=== PATIENT | female | born 1970 | race Caucasian/White ===

== ENCOUNTER 2019-09-12 12:36 | Outpatient (CLI) | payer OTHER, SELFPAY ==
--- NOTE | 2019-09-12 13:36 | DI.US_ITS ---
EXAM: US LOWER EXTREMITY VENOUS LT US LOWER EXTREMITY VENOUS LT CLINICAL HISTORY: LT CALF PAIN M79.662. LT CALF PAIN M79.662 TECHNIQUE: Ultrasound performed using standard protocol. COMPARISON: No exams were available for comparison FINDINGS: Duplex venous ultrasound was performed according to the usual protocol. The deep veins are freely com pressible throughout and there is normal flow augmentation with manual calf compression. 2D and Doppl er evaluation are unremarkable. IMPRESSION: No evidence of deep venous thrombosis of the lower extremity
== END 2019-09-12 12:56 ==
PROVIDERS: PCP Family Medicine; Visit Provider Family Medicine
DX: M79.662 Pain in left lower leg (principal)
CPT/HCPCS: 93971

== ENCOUNTER 2020-10-22 15:01 | Outpatient (REF) | payer OTHER, SELFPAY ==
--- NOTE | 2020-10-22 10:15 | PAPFT_PTH ---
PATIENT: Radha Veronica LOC: [facility]#:[id number] AGE/SX: 50/F ROOM: RE10/22/[address]: Tila Way : 1970 BED: DIS: 10/22/2020 SPEC #: [id number] RECD: 10/22/20 18:33 STATUS: FARHAD REQ #: [id number] LUANA: 10/22/20 10:[address]: Tila Way [facility]PT[facility] Cytology RECD BY: Dia West Tissues: 1 - CX/ENDOCX FOR PAP SMEARS Procedures: PAP THIN PREP/UVM Screening HPV DNA PROBE Comments: [id number]
[2020-10-22 17:06] LABS: HCT 36.8 % (36.0-46.0); HGB 10.6 g/dL (11.2-15.7); MCH 22.1 pg (27.0-33.0); MCHC 28.8 % (32.0-36.0); MCV 76.7 fL (80-95); MPV 10.6 fL (8.0-11.0); Platelet Count 414 10^3/uL (130-400); RDW 17.8 % (11.7-14.6); RDW-SD 49.4 fL; WBC 7.07 10^3/uL (4.4-10.8)
[2020-10-22 17:26] LABS: Ferritin 6 ng/mL (8-252); TSH (W/Ref FT4) 0.62 uIU/mL (0.36-3.74)
[2020-11-01 13:36] LABS: IgA 203 mg/dL (85-499); Interpretation (See Note); Tissue Transglutaminase IgA <1.2 U/mL (<4.0)
== END 2020-10-22 15:02 | disposition home or self-care (01) ==
LOC: NCHCN 15:01
PROVIDERS: PCP Family Medicine; Visit Provider Family Medicine
DX: Z00.00 Encounter for general adult medical examination without abnormal findings (principal); N92.1 Excessive and frequent menstruation with irregular cycle; Z12.4 Encounter for screening for malignant neoplasm of cervix; Z11.51 Encounter for screening for human papillomavirus (HPV); D50.9 Iron deficiency anemia, unspecified; K59.09 Other constipation
CPT/HCPCS: 82784; 83516; 85027; 88142; 82728; 84443; 87624

== ENCOUNTER 2020-12-14 02:41 | Outpatient (CLI) | payer OTHER, SELFPAY ==
[2020-12-14 09:26] LABS: Abs Immature Grans 0.03 10^3/uL (0.0-0.06); Absolute Basophil Count 0.08 10^3/uL (0.0-0.2); Absolute Eosinophil Count 0.26 10^3/uL (0.0-0.7); Absolute Lymphocyte Count 1.58 10^3/uL (1.2-3.4); Absolute Monocyte Count 0.59 10^3/uL (0.1-0.8); Absolute Neutrophil Count 4.81 10^3/uL (1.2-6.7); Basophils % 1.1; Eosinophils % 3.5; HCT 43.9 % (36.0-46.0); HGB 14.1 g/dL (11.2-15.7); Immature Grans % 0.4; Lymphocytes % 21.5; MCH 28.3 pg (27.0-33.0); MCHC 32.1 % (32.0-36.0); MCV 88.2 fL (80-95); MPV 9.7 fL (8.0-11.0); Neutrophils % 65.5; Nucleated RBC 0 %; Platelet Count 341 10^3/uL (130-400); RBC 4.98 10^6/uL (3.93-5.22); WBC 7.35 10^3/uL (4.4-10.8)
[2020-12-14 10:12] LABS: Diff Comment Diff Reviewed
[2020-12-14 10:13] LABS: Hypochromasia 1+
[2020-12-14 10:25] LABS: Source Nasal/Nares
[2020-12-14 21:17] LABS: COVID-19 PCR Negative (Negative)
== END 2020-12-14 02:42 | disposition home or self-care (01) ==
LOC: LBO 02:41
PROVIDERS: PCP Family Medicine; Visit Provider Obstetrics & Gynecology
DX: N93.8 Other specified abnormal uterine and vaginal bleeding (principal); Z20.822 Contact with and (suspected) exposure to COVID-19; Z01.818 Encounter for other preprocedural examination; Z01.812 Encounter for preprocedural laboratory examination
CPT/HCPCS: 36415; 86850; 86900; 86901; 87635; 85025

== ENCOUNTER 2020-12-16 11:30 | Day surgery (SDC) | payer OTHER, SELFPAY ==
[2020-12-16] VITALS (9 sets, daily range): BP systolic 128–160; BP diastolic 52–88; PULSE 57–75; RESP 11–18; TEMP 36.2–36.5; O2SAT 96–100; BMI 26.0
[2020-12-16] MEDS: Lactated Ringers 1,000 ML 125 ML IV (12:11)
--- NOTE | 2020-12-16 12:18 | W.ANESPRE ---
General Info Date of Service Date Performed: 12/16/20 Height: 5 ft 1 in Weight: 62.6 kg Body Mass Index (BMI): 26.0 Surgical Procedure: Operation Date: 12/16/20 13:10 Proposed Procedures Side Surgeon p Dilation & Curettage with Hysteroscopy Di Martínez DO Meds Allergies and Home Medications Allergies Allergy/AdvReac Type Severity Reaction Status Date / Time Sulfa (Sulfonamide Allergy Mild Hives Unverified 12/13/20 14:46 Antibiotics) amoxicillin Allergy Hives Unverified 12/13/20 14:46 Penicillins Allergy Hives Unverified 12/31/15 17:17 Home Medication Medication Instructions Recorded Advair HFA 2 puff INHALATION BID puff 02/20/13 albuterol sulfate [Ventolin HFA] 2 puff INHALATION Q6H PRN puff 02/20/13 citalopram 10 mg PO DAILY 12/31/15 polyethylene glycol 3350 17 17 g PO DAILY 11/03/20 gram/dose oral powder ferrous fumarate 325 mg (106 mg 325 mg PO DAILY 11/30/20 iron) tablet norethindrone acetate 5 mg tablet 5 mg PO .Twice daily #60 tab 11/30/20 Current Visit Medications: Current Medications Generic Name Dose Route Start Last Admin Trade Name Freq PRN Reason Stop Dose Admin Ringer's Solution 1,000 mls @ 125 mls/hr 12/16/20 06:00 12/16/20 12:11 IV 01/14/21 23:59 125 mls/hr INFUSION NEDA Administration IV Miscellaneous Supplies 1 each 12/16/20 06:00 Iv Access IV 01/14/21 23:59 DIRECTED NEDA Sodium Chloride 0 ml 12/16/20 06:00 Normal Saline Flush 10 Ml Syr IV 01/14/21 23:59 PRN PRN Sodium Chloride 0 ml 12/16/20 06:00 Normal Saline 10 Ml Vial IJ 01/14/21 23:59 DIRECTED PRN Sterile Water 0 ml 12/16/20 06:00 Water,Injection,Sterile 10 Ml Vial IJ 01/14/21 23:59 DIRECTED PRN PFSH Active Problems Active Problems: Problem Status Onset Code Thickened endometrium R93.89 Iron deficiency anemia D50.9 Dysfunctional uterine bleeding N93.8 Medical History Medical History Adenomatous colon polyp Alcohol use Asthma Constipation Dysfunctional uterine bleeding Dysplasia of cervix Eczema Generalized anxiety disorder Iron deficiency anemia Irritable colon Metrorrhagia Thickened endometrium Tobacco use Surgical History Surgical History Idiopathic scoliosis Tobacco Smoking/Tobacco Use Status: Current every day Tobacco Type: cigarettes Alcohol Alcohol Intake: current Alcohol intake frequency: a few times a week Alcohol type: hard liquor Substance Use Substance use: Never Substance use type: does not use Vital Signs and Lab Results Vital Signs Most Recent Vital Signs in EMR: Most Recent Vital Signs Temp Pulse Resp BP Pulse Ox 36.5 C 70 16 134/88 96 12/16/20 11:49 12/16/20 11:49 12/16/20 11:49 12/16/20 11:49 12/16/20 11:49 Point of Care Results Point of Care Results: POC- Test(urine) Negative 12/16/20 12:09 Lab Results Blood Type / Crossmatch: Patient ABO/Rh A Positive 12/14/20 09:00 12/14/20 Antibody Screen Negative 12/14/20 09:00 12/14/20 Complete Blood Count: White Blood Count 7.35 10^3/uL (4.4-10.8) 12/14/20 09:00 12/14/20 Red Blood Count 4.98 10^6/uL (3.93-5.22) 12/14/20 09:00 12/14/20 Hemoglobin 14.1 g/dL (11.2-15.7) 12/14/20 09:00 12/14/20 Hematocrit 43.9 % (36.0-46.0) 12/14/20 09:00 12/14/20 Platelet Count 341 10^3/uL (130-400) 12/14/20 09:00 12/14/20 Complete Metabolic Panel: No Data to Display Liver Function Panel: No Data to Display Coagulation Panel: No Data to Display Cardiac Panel: No Data to Display Arterial Blood Gas: No Data to Display Venous Blood Gas: No Data to Display Pancreas Panel: No Data to Display Thyroid Panel: No Data to Display Infectious Disease: Coronavirus (COVID-19)(PCR) Negative (Negative) 12/14/20 10:23 12/14/20 Coronavirus 2019 Source Nasal/nares 12/14/20 10:23 12/14/20 Blood Cultures: No Data to Display Toxicology Panel: No Data to Display Panel: No Data to Display Anesthesia Assessment and Plan Anesthesia History Personal History: No History of Anesthesia Complications Family History: No Family History of Anesthesia Complications Exercise Tolerance Exercise Tolerance: Metabolic Equivalents>4 Pertinent Negatives Pertinent Negatives: No Symptoms of GERD, No Major Cardiovascular Symptoms or Complaints, No Major Pulmonary Symptoms or Complaints (Asthma well controlled +smoker half pack ), No History of CVA/TIA and Other (ETOH 3-4/week ) Cardiac & Pulmonary Exam Cardiac Exam: Normal S1/S2 Heart Sounds Pulmonary Exam: Clear Bilateral Breath Sounds Airway Exam Known Difficult Airway: No Mallampati Class: 3 Mouth Opening: Narrow (< 3cm) Thyromental Distance: Less than 3 cm Neck Range of Motion: Full ROM Neck Circumference: Normal Teeth Condition: Normal Dentition ASA Classification ASA Score: ASA 2 Emergency Case?: No NPO Status NPO Status: NPO Clears >2 hours, Solids >8 hours Status Status: Negative HCG Anesthesia Plan Anesthesia Technique: General Anesthesia Airway Planned: Natural Airway Monitors Used: Standard Monitors
--- NOTE | 2020-12-16 13:30 | ENDO_PTH ---
PATIENT: Radha Veronica LOC: [facility] U#:[id number] AGE/SX: 50/F ROOM: RE12/16/[address]: Di Martínez DO : 1970 BED: DIS: 12/16/2020 SPEC #: [id number] RECD: 12/16/20 17:08 STATUS: FARHAD RE #: [id number] LUANA: 12/16/20 13:[address]: Di Martínez DEPT: Surgical Specimen RECD BY: Dia West ENTERED: 12/16/20 17:08 SP TYPE: Endo OTHR DR: Tila Way Tissues: 1 - ENDOCERVICAL BX/CURRETTE 2 - ENDOMETRIUM BX/CURRETTE Procedures: GROSS AND MICRO LEVEL 4 Comments: [id number]
--- NOTE | 2020-12-16 13:44 | ROE_ITS ---
Date of service: 12/16/20 Time of Service: 13:44 Operative Note Operative Note DATE OF PROCEDURE: 12/16/20 PRE-OP DIAGNOSIS: Dysfunctional uterine bleeding POST-OP DIAGNOSIS: same PROCEDURE: Hysteroscopy with dilation curettage SURGEON: Di Martínez ANESTHESIA TYPE: General LMA/ETT Refer to Anesthesia Record ESTIMATED BLOOD LOSS: 10 PATHOLOGY: other (1. Endocervix 2. Endometrium) COMPLICATIONS: None Patient was transported to: PACU Patient's condition: stable Indications: Ongoing heavy menstrual bleeding Findings: Bulky uterus, approximately 10 weeks size, freely mobile, appropriate descent. Thickened endometrium with plush lining. No discrete fibroid or polyp noted Procedure Description: Patient was taken the operating suite with an IV running where she placed in dorsal supine position. Anesthesia administered via monitored anesthesia care and converted to General via LMA. Patient was prepped and draped in the usual sterile fashion after timeout was performed. Exam under anesthesia revealed a uterus that was midline mobile, bulky approximately 10 weeks size with good descent. Speculum placed into the vaginal vault and a single tenaculum used to grasp the anterior cervix. Cervical os dilated the point that a 5 mm hysteroscope could be passed with ease. With instillation of normal saline the entire endometrial cavity was inspected. Both to be tubal ostia's were visualized. The endometrium overall appeared plush, thickened, somewhat irregular at the left cornual region. There is no evidence of polyp or fibroid. At this point hysteroscope was removed and a gentle sharp curettage performed of the endocervix followed by the endometrium. At this point tenaculum was removed tenaculum site was hemostatic. Speculum was removed and patient awoke from anesthesia with ease. She is taken recovery room in stable condition Findings: Bulky, 10-week size uterus with good descent. [place] endometrium Complications: None apparent Fluids: Crystalloid per anesthesia, less than 200 cc normal saline installation for hysteroscope. Pathology: 1. Endocervix 2. Endometrium
--- NOTE | 2020-12-16 14:52 | W.ANESPOSTOP ---
Postoperative Evaluation Date, Time and Location Date Performed: 12/16/20 Time Performed: 14:54 Patient Location: Day Surgery Unit Vital Signs Most Recent Imported Vital Signs: Most Recent Vital Signs Temp Pulse Resp BP Pulse Ox 36.5 C 68 17 132/55 L 98 12/16/20 14:35 12/16/20 14:35 12/16/20 14:35 12/16/20 14:35 12/16/20 14:35 Pain Score Most Recent Pain Score: Most Recent Pain Score Pain Level 0 12/16/20 14:35 Assessment Mental Status: Awake (Alert & Oriented to Patient Baseline) Airway and Respiratory Function: Patent airway with normal (patient baseline) respiratory exam Cardiovascular Function: Hemodynamically Stable Hydration Status: Adequately Hydrated Nausea & Vomiting: No Nausea or Vomiting Pain: Pain is tolerable/mild (<5/10) Peripheral Nerve Block: Patient did not receive a nerve block Postoperative Comments:: Slight cramping only.
== END 2020-12-16 15:30 | disposition home or self-care (01) ==
PROVIDERS: PCP Family Medicine; Visit Provider Obstetrics & Gynecology
PROC: 0UDB8ZZ Extraction of Endometrium, Via Natural or Artificial Opening Endoscopic (ICD-10-PCS; CPT 58558; principal; 2020-12-16 13:00)
DX: N93.8 Other specified abnormal uterine and vaginal bleeding (principal); R93.89 Abnormal findings on diagnostic imaging of other specified body structures; D50.9 Iron deficiency anemia, unspecified
CPT/HCPCS: 58558; 81025; 88305; J1885; J2001; J2405; J2704

== ENCOUNTER 2021-02-09 11:42 | Outpatient (REF) | payer OTHER, SELFPAY ==
[2021-02-09 14:50] LABS: HCT 46.9 % (36.0-46.0); HGB 15.6 g/dL (11.2-15.7); MCH 32.1 pg (27.0-33.0); MCHC 33.3 % (32.0-36.0); MCV 96.5 fL (80-95); MPV 10.8 fL (8.0-11.0); Platelet Count 302 10^3/uL (130-400); RBC 4.86 10^6/uL (3.93-5.22); RDW 13.2 % (11.7-14.6); RDW-SD 46.7 fL
[2021-02-09 15:29] LABS: COMMENT (LAB VIEW ONLY) 13.64 mg/dL
[2021-02-09 15:40] LABS: Anion Gap 12.2 mmol/L (3-11); BUN 7 mg/dL (7-18); CO2 23.8 mmol/L (21.0-32.0); CREATININE 0.6 mg/dL (0.55-1.02); Calcium 9.1 mg/dL (8.5-10.1); Chloride 105 mmol/L (98-107); Ferritin 36 ng/mL (8-252); Glucose 91 mg/dL (74-106); Potassium 4.3 mmol/L (3.5-5.1); Sodium 141 mmol/L (136-145)
== END 2021-02-09 11:43 | disposition home or self-care (01) ==
LOC: NCHCN 11:42
PROVIDERS: PCP Family Medicine; Visit Provider Family Medicine
DX: D50.9 Iron deficiency anemia, unspecified (principal); I10 Essential (primary) hypertension
CPT/HCPCS: 80048; 85027; 82043; 82570; 82728

== ENCOUNTER 2021-02-14 13:10 | Outpatient (RCR) | payer OTHER, SELFPAY ==
--- NOTE | 2021-02-14 16:00 | HOLTER_ITS ---
APPROVED REPORT Conclusion There is a 24-hour monitor ordered for indication of palpitations. Patient was in normal sinus rhythm for the majority the recording with an average heart rate of 84 bp m. There were no episodes of ventricular tachycardia and rare PVCs. There were no episodes of supraventricular tachycardia and rare PACs. There were no episodes of atrial fibrillation, no pauses greater than 3 seconds and no evidence of hi gh degree heart block. There were 9 patient reported events associated with racing heart and flutter. None of these wer e associated with significant arrhythmia nor any significant ectopy.
== END 2021-03-05 23:59 | disposition home or self-care (01) ==
LOC: RT 13:10
PROVIDERS: PCP Family Medicine; Visit Provider Family Medicine
DX: R00.2 Palpitations (principal)
CPT/HCPCS: 93225; 93226

== ENCOUNTER 2021-08-04 02:25 | Outpatient (CLI) | payer OTHER, SELFPAY ==
--- NOTE | 2021-08-04 16:05 | DI.MAMMO_ITS ---
Exam(s) MAMMO SCREENING EXAM: MAMMO SCREENING CLINICAL HISTORY: SCREENING, Z12.31. TECHNIQUE: Bilateral full field digital CC and MLO mammographic images were obtained with 3D tomosyn thesis and utilizing computer aided detection (CAD). COMPARISON: Prior baseline mammogram of 2014 FINDINGS: There has been no significant change in the appearance and distribution of the fibroglandular tissue which is moderately dense, this somewhat decreasing the sensitivity mammogram for finding in underlyi ng lesions. There are no new spiculated masses nor malignant appearing microcalcification groups. There is no significant architectural distortion nor skin thickening-retraction. IMPRESSION: Moderately dense fibroglandular tissue. No obvious radiographic evidence of malignancy nor significa nt change compared to the baseline mammogram of 2015. BI-RADS Category 1 - Negative Breast Density - Category C - Heterogeneously dense Breast density Category C or D implies that the patient has dense breast tissue. Dense breast tissue can make it harder to find cancer on a mammogram. Dense breast tissue is also associated with an incr eased risk of breast cancer. This information about the result of the mammogram report was provided to the patient to raise their awareness. Use this report when you speak with the patient about their risks for breast cancer, which includes their family history. At that time, you may recommend additional screening tests (Ultrasoun d or MRI) as these tests may add significant information. A negative radiographic report should not delay biopsy if a dominant or clinically suspicious mass is present. Up to ten percent of cancers are not identified on mammography. A negative report may reinforce clinical impression. Adenosis and dense breasts may obscure an underlying neoplasm. False positive reports average 6 to 10%. Patient will receive a letter notifying them of these results.
== END 2021-08-04 02:45 ==
PROVIDERS: PCP Family Medicine; Visit Provider Family Medicine
DX: Z12.31 Encounter for screening mammogram for malignant neoplasm of breast (principal); N64.89 Other specified disorders of breast
CPT/HCPCS: 77063; 77067

== ENCOUNTER 2021-11-02 14:44 | Outpatient (REF) | payer OTHER, SELFPAY ==
[2021-11-02 16:54] LABS: HCT 44.7 % (36.0-46.0); HGB 14.8 g/dL (11.2-15.7); MCH 31.8 pg (27.0-33.0); MCHC 33.1 % (32.0-36.0); MCV 96.1 fL (80-95); MPV 11.9 fL (8.0-11.0); Platelet Count 308 10^3/uL (130-400); RBC 4.65 10^6/uL (3.93-5.22); RDW 12.6 % (11.7-14.6); RDW-SD 44.7 fL; WBC 7.14 10^3/uL (4.4-10.8)
[2021-11-03 14:52] LABS: Ferritin 37 ng/mL (8-252)
== END 2021-11-02 14:45 | disposition home or self-care (01) ==
LOC: NCHCN 14:44
PROVIDERS: PCP Family Medicine; Visit Provider Family Medicine
DX: D50.9 Iron deficiency anemia, unspecified (principal)
CPT/HCPCS: 85027; 82728

== ENCOUNTER 2022-05-05 09:12 | Day surgery (SDC) | payer OTHER, SELFPAY ==
--- NOTE | 2022-05-04 22:33 | COLE_ITS ---
Colonoscopy Report Date of procedure: 05/05/22 Pre-op diagnosis general: villous adeonma Post-op diagnosis procedure note: other (normal) Surgeon: Sydni Pope Anesthesia Type: General:No Airway Estimated blood loss (mL): 0 Pathology: none sent Complications: None Disposition: same day Prep: Miralax/Dulcolax Retraction Time: 7 Procedure Description: After informed consent was obtained the patient was taken to the procedure room and placed in a left decubitous position. Monitors were applied and a time out was done. The patients name, date of , procedure, allergies to medications and metal in their body was reviewed. The patient was then sedated. Once sedat ed and comfortable a rectal exam was done. External exam was normal. Internal exam revealed a normal sphincter tone and no palpable masses. The scope was then introduced and retrofelexed. No internal hemorrhoids were identified. The scope was then advanced to the cecum w/out difficulty. The TI and appendiceal orifice were identified. The prep was BBPS 3 in all segments for a total of 9. The scope was then slowly retracted over 7 minutes back into the rectum. There are no polyps, AVM's, or diverticula visulaized. The mucosa is pink adn healthy w/ a normal vascular pattern. The scope was removed and the patient was woken up and taken back to Same day surgery in stable condition. The patient tolerated the procedure well and there were no immediate complications. Follow up: The patient should follow up in 10 years unless they develop changes in bowel habits or other new gastrointestinal complaints.
--- NOTE | 2022-05-04 22:35 | PDOC.DSDIS_ITS ---
Discharge Plan Disposition Patient Disposition: HOME Condition: Good Discharge Details Reason For Visit: colon scope Attending Provider: Sydni Pope Primary Care Provider: Tila Way Home Meds and New Rx's Prescriptions: Continued Zyrtec 10 mg capsule 10 mg PO DAILY PRN ferrous fumarate 325 mg (106 mg iron) tablet 325 mg PO Q OTHER DAY albuterol sulfate [Ventolin HFA] 8 GM HFA aerosol inhaler 2 puff Inhalation Q6H PRN Advair HFA 8 GM HFA aerosol inhaler 2 puff Inhalation DAILY polyethylene glycol 3350 [Miralax] 17 gram/dose powder 17 g PO DAILY citalopram 10 mg tablet 20 mg PO DAILY amlodipine 10 mg tablet 10 mg PO DAILY betamethasone dipropionate 0.05 % cream 1 applic topical BID PRN prednisone 20 mg tablet 1 tab PO DAILY Label Comments: TAKE TWO TABLETS BY MOUTH EVERY DAY FOR 4 DAYS, THEN TAKE ONE AND ONE-HALF TABLETS BY MOUTH DAILY FOR 4 DAYS, THEN TAKE ONE TABLET BY MOUTH meclizine 25 mg tablet 1 tab PO PRN PRN Label Comments: TAKE ONE TABLET BY MOUTH THREE TIMES A DAY NEEDED FOR VERTIGO ibuprofen 800 mg tablet 800 mg PO PRN PRN Discontinued polyethylene glycol 3350 17 gram/dose powder 238 g PO ONCE Qty: 238 0RF Rx Instructions: take per colonoscopy instructions bisacodyl [Dulcolax (bisacodyl)] 5 mg tablet,delayed release (DR/EC) 5 mg PO ONCE Qty: 4 0RF Rx Instructions: take per colonoscopy instructions Discharge Instructions Additional Instructions: DSU Colonoscopy Post- Op Instructions Instructions for Everyone who is given Anesthe mamta: For your safety, please do the following for the next twenty-four (24) hours: *Do Not operate a motor vehicle (car, truck, motorcycle, etc.) *Do Not drink alcoholic beverages or use any recreational drugs for the first 24 hours or while taking pain medications. The medications in your body may have a reaction that can be dangerous. *Do Not make any important decisions or sign any important papers. Findings: Normal Follow up: Repeat in 10 yrs time 1. No lifting over 20 pounds or strenuous activity for the first 24 hours after your procedure. After 24 hours there are no restrictions on your activity but you may feel fatigued for a few days. 2. After you arrive home you may have a light meal and return to your normal diet as you can tolerate it without feeling sick to your stomach. 3. You may have a bloated, gaseous feeling in your belly (abdomen) after a colonoscopy. Passing gas and belching will help. Walking or lying down on your left side with your knees flexed may relieve the discomfort. Call the office at [phone] (Office) or [phone] (Hospital) right away if you notice any of the following: a.Vomiting of blood or ?coffee ground stools?. b.Rectal bleeding 1Tbsp, blood clots or continuous bleeding. c.Severe belly (abdominal) pain. d.A hard distended belly (abdomen) and an inability to pass gas. 4. Please don?t expect to have a normal BM (bowel movement) for 2-3 days after your procedure. 5. If there are questions regarding the findings of your procedure, please contact your doctor 6. If you are unable to contact your doctor with a problem, contact the hospital at [phone]. 7. Continue all your regular medications unless directed otherwise. I understand the above instructions and have no questions. Signature of Patient or Adult Escort Name of Responsible Adult Escort Signature of Nurse Date/Time Activity:: see aabove Diet:: see above
--- NOTE | 2022-05-05 09:45 | W.ANESPRE ---
General Info Date of Service Date Performed: 05/05/22 Height: 5 ft 1.5 in Weight: 52.163 kg Body Mass Index (BMI): 21.4 Surgical Procedure: Operation Date: 05/05/22 09:50 Proposed Procedure Side Surgeon maricarmen Pope, DO Meds Allergies and Home Medications Allergies Allergy/AdvReac Type Severity Reaction Status Date / Time Sulfa (Sulfonamide Allergy Mild Hives Unverified 05/05/22 09:39 Antibiotics) amoxicillin Allergy Hives Unverified 05/05/22 09:39 Penicillins Allergy Hives Unverified 05/05/22 09:39 Home Medication Medication Instructions Recorded albuterol sulfate 90 mcg/actuation 2 puff inhalation Q6H PRN 02/20/13 aerosol inhaler (Ventolin HFA) fluticasone propionate 115 2 puff inhalation DAILY 02/20/13 mcg-salmeterol 21 mcg/actuation HFA inhaler (Advair HFA) polyethylene glycol 3350 17 17 g PO DAILY 11/03/20 gram/dose oral powder (Miralax) ferrous fumarate 325 mg (106 mg 325 mg PO DAILY 11/30/20 iron) tablet amlodipine 10 mg tablet 10 mg PO DAILY 09/15/21 betamethasone dipropionate 0.05 % 1 applic topical BID PRN 09/15/21 topical cream citalopram 10 mg tablet 20 mg PO DAILY 09/15/21 cetirizine 10 mg capsule (Zyrtec) 10 mg PO DAILY PRN 04/17/22 ibuprofen 800 mg tablet 800 mg PO PRN PRN 05/04/22 meclizine 25 mg tablet 1 tab PO PRN PRN 05/04/22 prednisone 20 mg tablet 1 tab PO Q OTHER DAY 05/04/22 Current Visit Medications: Current Medications Generic Name Dose Route Start Last Admin Trade Name Freq PRN Reason Stop Dose Admin Hyoscyamine Sulfate 0.125 mg 05/05/22 06:00 Hyoscyamine 0.125 Mg Sl/Oral/Chew SL 05/05/22 16:00 PREOP NEDA Hyoscyamine Sulfate 0.125 mg 05/04/22 22:32 Hyoscyamine 0.125 Mg Sl/Oral/Chew SL DIRECTED PRN Ringer's Solution 1,000 mls @ 80 mls/hr 05/05/22 06:00 IV 05/05/22 23:59 INFUSION [facility] IV Miscellaneous Supplies 1 each 05/05/22 06:00 Iv Access IV 05/05/22 23:59 DIRECTED NEDA Ondansetron HCl 4 mg 05/04/22 22:32 Ondansetron 4 Mg/2 Ml Vial IVP Q4H PRN PRN Nausea / Vomiting Sodium Chloride 0 ml 05/05/22 06:00 Normal Saline Flush 10 Ml Syr IV 05/05/22 23:59 PRN PRN Sodium Chloride 0 ml 05/05/22 06:00 Normal Saline 10 Ml Vial IJ 05/05/22 23:59 DIRECTED PRN Sterile Water 0 ml 05/05/22 06:00 Water,Injection,Sterile 10 Ml Vial IJ 05/05/22 23:59 DIRECTED PRN PFSH Active Problems Active Problems: Problem Status Onset Code Dysfunctional uterine bleeding N93.8 Iron deficiency anemia D50.9 Thickened endometrium R93.89 Status post hysteroscopy Z98.890 Hypertension I10 Medical History Medical History Abscessed tooth Adenomatous colon polyp Alcohol use Asthma Constipation Dysplasia of cervix Eczema Generalized anxiety disorder Great toe pain Hx of fracture of arm child Irritable colon Menorrhagia Metrorrhagia Palpitations Tobacco use Vaginal candidiasis Vertigo 05/04/22 currently on predinisone Surgical History Surgical History History of dilation and curettage History of hysteroscopy Idiopathic scoliosis pt denies Tobacco Smoking/Tobacco Use Status: Current every day Tobacco Type: cigarettes Alcohol Alcohol Intake: current Alcohol intake frequency: a few times a week Alcohol type: hard liquor Substance Use Substance use: Never Substance use type: does not use Vital Signs and Lab Results Manually Entered Vital Signs Most Recent Manually Entered Vital Signs: Adult Blood Pressure: 112/73 Heart Rate: 64 Respirations: 18 Oxygen Saturation (%): 100 Temperature (C): 36.5 C Pain Score (0-10 Scale): 0 Lab Results Blood Type / Crossmatch: No Data to Display Complete Blood Count: No Data to Display Complete Metabolic Panel: No Data to Display Liver Function Panel: No Data to Display Coagulation Panel: No Data to Display Cardiac Panel: No Data to Display Arterial Blood Gas: No Data to Display Venous Blood Gas: No Data to Display Pancreas Panel: No Data to Display Thyroid Panel: No Data to Display Infectious Disease: No Data to Display Blood Cultures: No Data to Display Toxicology Panel: No Data to Display Panel: No Data to Display Anesthesia Assessment and Plan Anesthesia History Personal History: No History of Anesthesia Complications Family History: No Family History of Anesthesia Complications Exercise Tolerance Exercise Tolerance: Metabolic Equivalents>4 Pertinent Negatives Pertinent Negatives: No Symptoms of GERD Cardiac & Pulmonary Exam Cardiac Exam: Normal S1/S2 Heart Sounds Pulmonary Exam: Clear Bilateral Breath Sounds Implantable Cardiac Device Does patient have a Pacemaker or an ICD?: No Airway Exam Known Difficult Airway: No Mallampati Class: 3 Mouth Opening: Narrow (< 3cm) Thyromental Distance: Less than 3 cm Neck Range of Motion: Full ROM Neck Circumference: Normal Teeth Condition: Normal Dentition ASA Classification ASA Score: ASA 2 Emergency Case?: No NPO Status NPO Status: NPO Clears >2 hours, Solids >8 hours Status Status: Negative HCG Anesthesia Plan Resuscitation Status: Full Code Anesthesia Technique: General Anesthesia Airway Planned: Natural Airway Monitors Used: Standard Monitors
[2022-05-05] MEDS: Hyoscyamine 0.125 MG SL/ORAL/CHEW SL (09:46)
[2022-05-05 09:47] VITALS: BP 112/73; PULSE 64; RESP 18; TEMP 36.5; O2SAT 100
[2022-05-05] MEDS: Lactated Ringers 1,000 ML 80 ML IV (09:58)
[2022-05-05 10:03] VITALS: BMI 21.4
[2022-05-05 10:05] VITALS: BP 112/73; PULSE 64; RESP 18; TEMPC 36.5; O2SAT 100
[2022-05-05 10:40] VITALS: BP 99/64; PULSE 66; RESP 16; TEMP 36.4; O2SAT 100
--- NOTE | 2022-05-05 11:00 | W.ANESPOSTOP ---
Postoperative Evaluation Date, Time and Location Date Performed: 05/05/22 Time Performed: 11:00 Patient Location: Day Surgery Unit Vital Signs Most Recent Imported Vital Signs: Most Recent Vital Signs Temp Pulse Resp BP Pulse Ox 36.4 C L 66 16 99/64 L 100 05/05/22 10:40 05/05/22 10:40 05/05/22 10:40 05/05/22 10:40 05/05/22 10:40 Pain Score Most Recent Pain Score: 0 Assessment Mental Status: Awake (Alert & Oriented to Patient Baseline) Airway and Respiratory Function: Patent airway with normal (patient baseline) respiratory exam Cardiovascular Function: Hemodynamically Stable Hydration Status: Adequately Hydrated Nausea & Vomiting: No Nausea or Vomiting Pain: Pt. Denies Any Pain Peripheral Nerve Block: Patient did not receive a nerve block
[2022-05-05 11:10] VITALS: BP 115/62; PULSE 54; RESP 16; TEMP 36.4; O2SAT 100
== END 2022-05-05 11:20 | disposition home or self-care (01) ==
PROVIDERS: PCP Family Medicine; Visit Provider Surgery
PROC: 0DJD8ZZ Inspection of Lower Intestinal Tract, Via Natural or Artificial Opening Endoscopic (ICD-10-PCS; CPT 45378; principal; 2022-05-05 09:45)
DX: Z12.11 Encounter for screening for malignant neoplasm of colon (principal); Z86.010 Personal history of colon polyps; J45.909 Unspecified asthma, uncomplicated; F17.210 Nicotine dependence, cigarettes, uncomplicated
CPT/HCPCS: 45378; 81025; J3490

== ENCOUNTER 2022-11-20 16:34 | Outpatient (REF) | payer OTHER, SELFPAY ==
[2022-11-20 17:22] LABS: Calculated LDL 185 mg/dL (<100); Cholesterol 269 mg/dL (<200); HDL Cholesterol 70 mg/dL (40-60); Triglyceride 71 mg/dL (<150)
== END 2022-11-20 16:35 | disposition home or self-care (01) ==
LOC: NCHCN 16:34
PROVIDERS: PCP Family Medicine; Visit Provider Family Medicine
DX: I10 Essential (primary) hypertension (principal); D50.9 Iron deficiency anemia, unspecified; Z13.220 Encounter for screening for lipoid disorders; Z00.00 Encounter for general adult medical examination without abnormal findings
CPT/HCPCS: 80061

== ENCOUNTER 2023-01-31 00:33 | Outpatient (CLI) | payer OTHER, SELFPAY ==
--- NOTE | 2023-01-31 | DI.MAMMO_ITS ---
Exam(s) MAMMO SCREENING EXAM: MAMMO SCREENING CLINICAL HISTORY: SCREENING, Z12.31 TECHNIQUE: Bilateral full field digital CC and MLO mammographic images were obtained with 3D tomosyn thesis and utilizing computer aided detection (CAD). COMPARISON: Available for comparison. FINDINGS: Masses/Architectural Distortion: None seen. Microcalcifications: No suspicious pleomorphic-type are seen. Skin Thickening/Nipple Retraction: None. IMPRESSION: 1. No significant interval change with no specific features of malignancy noted. 2. Unless there is more urgent need, screening mammography is recommended, as per [employer] guidelines. BI-RADS Category 1 - Negative Breast Density - Category C - Heterogeneously dense Breast density category C or D implies that the patient has dense breast tissue. Dense breast tissue is very common and is not abnormal but dense breast tissue can make it harder to find cancer on a ma mmogram. Also, dense breast tissue may increase their breast cancer risk. This information about the result of the mammogram report was provided to the patient to raise their awareness. Use this report when you speak with the patient about their risks for breast cancer, which includes their family hist ory. At that time, you may recommend for more screening tests (Ultrasound or MRI) as they might be us eful based on their risk. A negative radiographic report should not delay biopsy if a dominant or clinically suspicious mass is present. Up to ten percent of cancers are not identified on mammography. A negative report may reinforce clinical impression. Adenosis and dense breasts may obscure an underlying neoplasm. False positive reports average 6 to 10%. Patient will receive a letter notifying them of these results.
== END 2023-01-31 00:53 ==
LOC: DI 00:33
PROVIDERS: PCP Family Medicine; Visit Provider Family Medicine
DX: Z12.31 Encounter for screening mammogram for malignant neoplasm of breast (principal)
CPT/HCPCS: 77063; 77067

== ENCOUNTER 2024-01-02 10:57 | Outpatient (REF) | payer OTHER, SELFPAY ==
[2024-01-02 15:29] LABS: BUN 13 mg/dL (7-18); CREATININE 0.7 mg/dL (0.55-1.02); Calcium 9.2 mg/dL (8.5-10.1); Calculated LDL 165 mg/dL (<100); Chloride 103 mmol/L (98-107); Cholesterol 250 mg/dL (<200); Estimated GFR 104.65 (mL/min/1.73m2); Glucose 104 mg/dL (74-106); HDL Cholesterol 72 mg/dL (40-60); Potassium 4.3 mmol/L (3.5-5.1); Sodium 138 mmol/L (136-145); Triglyceride 65 mg/dL (<150)
== END 2024-01-02 10:58 | disposition home or self-care (01) ==
LOC: NCHCN 10:57
PROVIDERS: PCP Family Medicine; Visit Provider Family Medicine
DX: I10 Essential (primary) hypertension (principal)
CPT/HCPCS: 80048; 80061

== ENCOUNTER 2025-05-06 03:31 | Outpatient (CLI) | payer OTHER, SELFPAY ==
--- NOTE | 2025-05-06 08:15 | DI.MRI_ITS ---
Exam(s) MR BRAIN WO EXAM: MR BRAIN WO CLINICAL HISTORY: NEW ONSET HEADACHES, R51.9 TECHNIQUE: Multiplanar multisequence MRI of the brain was performed. COMPARISON: MR MRI - BRAIN W/WO CONTRAST from 04/26/2017 FINDINGS: VENTRICLES AND EXTRA AXIAL SPACES: Normal in size and morphology for the patient's age. MIDLINE SHIFT: None. CEREBRAL PARENCHYMA: No focus of restricted diffusion to suggest acute infarct. No space-occupying lesion identified. Mild atrophy consistent with the patient's age. There are a few scattered foci of high signal in the white matter which appear unchanged from the previous exam. BRAINSTEM/CEREBELLUM: Normal. VISUALIZED PARANASAL SINUSES: Clear. MASTOIDS:Clear. Vasculature: Normal flow void. PITUITARY GLAND: Unremarkable. ORBITS: Unremarkable. IMPRESSION: There are few tiny nonspecific high signal lesions in the white matter which appear unchanged from the prior exam. No acute abnormality. DATA REPOSITORY:
== END 2025-05-06 03:51 ==
PROVIDERS: PCP Family Medicine; Visit Provider Family Medicine
DX: R51.9 Headache, unspecified (principal)
CPT/HCPCS: 70551

== ENCOUNTER 2025-06-05 15:25 | Outpatient (REF) | payer OTHER, SELFPAY ==
[2025-06-05 22:40] LABS: HCT 43.9 % (36.0-46.0); HGB 15.2 g/dL (11.2-15.7); MCH 33.0 pg (27.0-33.0); MCHC 34.6 % (32.0-36.0); MCV 95 fL (80-95); MPV 10.1 fL (8.0-11.0); Platelet Count 320 10^3/uL (130-400); RBC 4.61 10^6/uL (3.93-5.22); RDW 12.8 % (11.7-14.6); RDW-SD 45.2 fL; WBC 6.82 10^3/uL (4.4-10.8)
[2025-06-05 22:51] LABS: Hemoglobin A1C 5.0 % (<5.7)
[2025-06-05 23:00] LABS: ALT 23 U/L (14-59); AST 14 U/L (15-37); Albumin 3.7 g/dL (3.4-5.0); Alkaline Phosphatase 110 U/L (46-116); Anion Gap 10.3 mmol/L (3-11); BUN 10 mg/dL (7-18); Bilirubin, Total 0.2 mg/dL (0.2-1.0); CO2 28.7 mmol/L (21.0-32.0); Calcium 9.2 mg/dL (8.5-10.1); Chloride 100 mmol/L (98-107); Glucose 83 mg/dL (74-106); Potassium 4.1 mmol/L (3.5-5.1); Sodium 139 mmol/L (136-145); TSH (W/Ref FT4) 1.08 uIU/mL (0.36-3.74); Total Protein 7.3 g/dL (6.4-8.2)
[2025-06-08 09:44] LABS: Hepatitis C Ab w Rflx HCV PCR Negative (Negative)
[2025-06-08 09:57] LABS: HIV-1/2 Ag & Ab Screen Negative (Negative)
== END 2025-06-05 15:26 | disposition home or self-care (01) ==
LOC: NCHCN 15:25
PROVIDERS: PCP Family Medicine; Visit Provider Family Medicine
DX: I10 Essential (primary) hypertension (principal); R51.9 Headache, unspecified; Z13.1 Encounter for screening for diabetes mellitus; Z11.59 Encounter for screening for other viral diseases
CPT/HCPCS: 80053; 85027; 86803; 87389; 83036; 84443